=== PATIENT | female | born 2000 | race Caucasian/White ===

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

== ENCOUNTER → 2021-02-09 | Outpatient (CLI) | payer OTHER | LOC: HEART 5 13:00 | DX: R00.2 Palpitations (principal); R55 Syncope and collapse; I07.1 Rheumatic tricuspid insufficiency; I37.1 Nonrheumatic pulmonary valve insufficiency | CPT/HCPCS: 93306 ==